=== PATIENT | male | born 1960 | race Caucasian/White ===

== ENCOUNTER → 2022-06-07 | Outpatient (CLI) | payer OTHER, SELFPAY ==
--- NOTE | 2022-06-07 08:51 | RAD_ITS ---
STUDY: X-RAY - ESOPHAGUS (BARIUM SWALLOW) WITH FLUOROSCOPY REASON FOR EXAM: Male, 62 years old. DYSPHAGIA -- 12 MM TABLET TECHNIQUE: 21 view(s) of the esophagus were obtained following swallowing of barium. FLUOROSCOPY TIME (if supplied): (39 seconds) minutes/seconds COMPARISON: None. FINDINGS: There is no demonstrated esophageal foreign body. There is no demonstrated stricture or mucosal abnormality. There is a small hiatal hernia of the fundus of the stomach. Mild weblike narrowing at the gastroesophageal junction. The patient ingested a 12 mm tablet of barium without any difficulty. Normal visualized aortic arch and descending thoracic aorta. Normal visualized pulmonary parenchyma. Normal visualized osseous structures of the thorax. RAD/Esophagus Dual Contrast IMPRESSION: Small sliding hernia without reflux. Mild weblike narrowing at the gastroesophageal junction. Electronically Signed: Ruben Prince MD at 9:16 EDT ,
== END | disposition home or self-care (01) ==
LOC: RAD 08:48
PROVIDERS: PCP Internal Medicine Gastroenterology; Referring Provider Internal Medicine Gastroenterology; Visit Provider Internal Medicine Gastroenterology
DX: R13.10 Dysphagia, unspecified (principal); K44.9 Diaphragmatic hernia without obstruction or gangrene
CPT/HCPCS: 74221